=== PATIENT | female | born 1930 | race Caucasian/White ===

== ENCOUNTER 2016-04-06 06:10 | Observation (INO) | payer OTHER ==
[~2016-04-06] VITALS: Ht 167.6 cm; Wt 79.6 kg
[~2016-04-06 06:10] MED LIST: ANTIVERT25 MG PO; ASPIR-LOW81 MG PO; ATARAX,VISTARIL25 MG PO; ATIVAN0.5 MG PO; AVAPRO300 MG PO; Ascorbic Acid,Ester- PO; BACTRIM,SEPT1 TABLET PO; BENICAR HCT 401 EAC1 PO; BENICAR20 MG PO; BENICAR40 MG PO; BISACODYL5 MG PO; CALCIUM 500 +1 EAC2 PO; CALCIUM 600 WI1 EAC1 PO; CALCIUM500 M4 PO; CARBIDOPA-LEVO1 EAC7 PO; CARBIDOPA/LEVO1 EACH PO; CEFTIN250 MG PO; CENTRUM SILV1 TABLE1 PO; CHLORTHALIDONE25 MG PO; CO Q-10100 MG PO; COUMADIN,JANTOVE1 MG PO; COUMADIN,JANTOVE2 MG PO; COUMADIN2 MG PO; COUMADIN3 MG PO; Calcium Carbonate,Ca PO; Catapres PO; Centrum Silver,Certa PO; Coumadin dosing per PO; DOCUSATE SODIU100 MG PO; DUONEB3 ML IH; Dulcolax PO; Ecotrin PO; HEPARIN SO5000 UNITS SC; LABETALOL HCL100 MG PO; LEVOTHYROXINE125 MCG PO; LORAZEPAM0.5 MG PO; LOSARTAN POTAS100 MG PO; METOPROLOL SUCC25 MG PO; MILK OF MAGNESI10 ML PO; NIFEDIPINE ER60 MG PO; NORCO 5/3251 TABLET PO; NORVASC5 MG PO; Norvasc PO; OYST-CAL D, OS500 M1 PO; Oyst-Cal D, Oscal W/ PO; PROPAFENONE HC225 MG PO; Protonix PO; RYTHMOL SR225 MG PO; SENNA PLUS TAB1 EACH PO; SENOKOT S,PE1 TABLET PO; SINEMET 25-1001 EACH PO; SYSTANE 0.3-0.1 EACH BOTH EYES; THERAGRAN1 TABLET PO; TYLENOL REGULA325 MG PO; TYLENOL WITH C1 EACH PO; Tylenol Extra Streng PO; Tylenol PR; Tylenol Regular Stre PO; ULTRAM50 MG PO; VITAMIN B-12500 MC2 PO; VITAMIN D31000 UNI2 PO; ZETIA10 MG PO; Zofran IV
[2016-04-06 06:47] LABS: EOSINOPHIL (%) 4.4 % (0-5); EOSINOPHIL COUNT 0.2 K/uL (0-0.3); IMMATURE GRANULOCYTE (%) 0.2 % (0.0-0.7); IMMATURE GRANULOCYTE COUNT 0.1 K/uL; LYMPHOCYTE COUNT 1.1 K/uL (1.0-2.8); MCH 31.4 PG (29.0-34.0); MCHC 32.4 G/DL (30.0-36.0); MCV 96.8 FL (83-99); MEAN PLAT.VOLUME 10.2 uM^3 (9.5-12.4); MONOCYTE (%) 14.3 % (3-12); MONOCYTE COUNT 0.6 K/uL (0-0.8); NEUTROPHIL (%) 54.3 % (45-76); NEUTROPHIL COUNT 2.2 K/uL (1.8-6.4); PLATELET COUNT 188 K/uL (156-360); RBC DIS.WIDTH-CV 12.9 % (11.8-14.6); RBC DIS.WIDTH-SD 43.6 % (39-53); RED BLOOD COUNT 3.41 M/uL (3.80-5.20); WHITE BLOOD COUNT 4.1 K/uL (4.1-10.2)
[2016-04-06 06:56] LABS: INTER. NORMALIZED RATIO 1.1; PTT 28.3 (25-32)
[2016-04-06 06:59] LABS: CHLORIDE 106 mEq/L (99-109); POTASSIUM 4.2 mEq/L (3.7-5.4); SODIUM 139 mEq/L (136-147)
[2016-04-06 07:01] LABS: GLUCOSE 84 mg/dL (70-99)
[2016-04-06 07:03] LABS: ANION GAP 8 MEQ/L (2-14)
[2016-04-06 07:05] LABS: GFR ESTIMATE (CALCULATED) 35 mL/min/
[2016-04-06 07:06] LABS: UREA NITROGEN (BUN) 34 mg/dL (9-23)
[2016-04-06 07:08] LABS: TROP-I INTERPRETATION NEGATIVE; TROPONIN-I 0.01 ng/mL (0.0-0.30)
[2016-04-06] MEDS ORDERED: NEURONTIN100 MG PO (08:20)
[2016-04-06] MEDS ORDERED: SYSTANE ULTRA 015 ML BOTH EYES (08:20)
[2016-04-06] MEDS ORDERED: VITAMIN D31000 UNI1 PO (08:22)
[2016-04-06] MEDS ORDERED: VITAMIN B-12500 MC5 SL (08:23)
[2016-04-06 09:04] VITALS: BP 178/72
[2016-04-06 11:39] VITALS: BP 162/70
[2016-04-06 16:52] VITALS: BP 148/70
[2016-04-06 19:14] LABS: TROP-I INTERPRETATION NEGATIVE; TROPONIN-I 0.01 ng/mL (0.0-0.30)
[2016-04-06 21:55] VITALS: BP 167/72
[2016-04-06 23:48] VITALS: BP 196/79
[2016-04-07 00:46] VITALS: BP 172/82
[2016-04-07 01:45] LABS: TROP-I INTERPRETATION NEGATIVE; TROPONIN-I 0.01 ng/mL (0.0-0.30)
[2016-04-07 04:22] VITALS: BP 180/66
[2016-04-07 08:32] VITALS: BP 170/60
[2016-04-07 09:14] LABS: HEMATOCRIT 33.8 % (36.0-46.0); MCHC 33.1 G/DL (30.0-36.0); MCV 96.6 FL (83-99); MEAN PLAT.VOLUME 10.2 uM^3 (9.5-12.4); PLATELET COUNT 194 K/uL (156-360); RBC DIS.WIDTH-CV 13.2 % (11.8-14.6); RBC DIS.WIDTH-SD 46.5 % (39-53); WHITE BLOOD COUNT 4.2 K/uL (4.1-10.2)
[2016-04-07 09:31] LABS: ANION GAP 7 MEQ/L (2-14); CHLORIDE 105 MEQ/L (99-109); POTASSIUM 4.3 MEQ/L (3.7-5.4); SAMPLE HEMOLYSIS CHECK 0; SAMPLE ICTERIC CHECK 0; SAMPLE LIPEMIA CHECK 0; SODIUM 140 MEQ/L (136-147)
[2016-04-07 09:37] LABS: GFR ESTIMATE (CALCULATED) 38 mL/min/; GLUCOSE 89 mg/dL (70-99); UREA NITROGEN (BUN) 32 mg/dL (9-23)
[2016-04-07 11:24] VITALS: BP 140/50
[2016-04-07] MEDS ORDERED: AMLODIPINE BES2.5 MG PO (11:46)
== END 2016-04-07 14:36 | disposition home or self-care (01) ==
LOC: EME → EDBD 06:10 → EME 06:10 → 5WEST 07:42 → EDOF 07:42 → 5WEST 08:45
PROVIDERS: Emergency Medicine; Hospitalist; Nurse Practitioner Adult Health
DX: R07.9 Chest pain, unspecified (principal); I48.0 Paroxysmal atrial fibrillation; I10 Essential (primary) hypertension; Z93.3 Colostomy status; E78.5 Hyperlipidemia, unspecified; G20 Parkinson's disease; M54.16 Radiculopathy, lumbar region; M19.90 Unspecified osteoarthritis, unspecified site; Z66 Do not resuscitate
CPT/HCPCS: 71010; 80048; 84484; 85025; 85027; 85610; 85730; 93005; 99281; 99284; G0378; J0360; S0028

== ENCOUNTER 2016-09-02 20:30 | Inpatient (IN) | payer OTHER ==
[~2016-09-02] VITALS: Ht 167.6 cm; Wt 79.5 kg
[~2016-09-02 20:30] MED LIST changes: +AMLODIPINE BES2.5 MG PO; +NEURONTIN100 MG PO; +SYSTANE ULTRA 015 ML BOTH EYES; +VITAMIN B-12500 MC5 SL; +VITAMIN D31000 UNI1 PO
[2016-09-02 21:03] LABS: HEMATOCRIT 33.5 % (36.0-46.0); MCH 32.1 PG (29.0-34.0); MCHC 33.1 G/DL (30.0-36.0); MCV 96.8 FL (83-99); MEAN PLAT.VOLUME 9.5 uM^3 (9.5-12.4); PLATELET COUNT 196 K/uL (156-360); RBC DIS.WIDTH-CV 12.5 % (11.8-14.6); RBC DIS.WIDTH-SD 44.7 % (39-53); RED BLOOD COUNT 3.46 M/uL (3.80-5.20); WHITE BLOOD COUNT 5.4 K/uL (4.1-10.2)
[2016-09-02 21:17] LABS: CHLORIDE 97 mEq/L (99-109)
[2016-09-02 21:20] LABS: ANION GAP 8 MEQ/L (2-14)
[2016-09-02 21:22] LABS: GFR ESTIMATE (CALCULATED) 28 mL/min/
[2016-09-02 21:23] LABS: UREA NITROGEN (BUN) 47 mg/dL (9-23)
[2016-09-02 21:28] LABS: TROP-I INTERPRETATION NEGATIVE; TROPONIN-I 0.02 ng/mL (0.0-0.30)
[2016-09-02 21:31] LABS: SODIUM 130 mEq/L (136-147)
[2016-09-02 21:33] LABS: GLUCOSE 99 mg/dL (70-99)
[2016-09-02 21:35] LABS: TOTAL BILIRUBIN 0.4 mg/dL (0.0-1.0)
[2016-09-02 21:36] LABS: ALKALINE PHOSPHATASE 102 IU/L (3-129)
[2016-09-02 21:38] LABS: DIRECT BILIRUBIN 0.2 mg/dL (0.0-0.3)
[2016-09-02 21:40] LABS: LIPASE 25 U/L (1.0-51.0)
[2016-09-03] VITALS (7 sets, daily range): BP systolic 132–185; BP diastolic 58–74
[2016-09-03 04:10] LABS: TROP-I INTERPRETATION POSITIVE
[2016-09-03 04:12] LABS: TROPONIN-I 1.13 ng/mL (0.0-0.30)
[2016-09-03 05:33] LABS: HEMATOCRIT 32.8 % (36.0-46.0); MCH 32.7 PG (29.0-34.0); MCHC 33.5 G/DL (30.0-36.0); MCV 97.6 FL (83-99); PLATELET COUNT 188 K/uL (156-360); RBC DIS.WIDTH-CV 12.4 % (11.8-14.6); RBC DIS.WIDTH-SD 44.4 % (39-53); RED BLOOD COUNT 3.36 M/uL (3.80-5.20); WHITE BLOOD COUNT 5.4 K/uL (4.1-10.2)
[2016-09-03 05:57] LABS: ALKALINE PHOSPHATASE 89 IU/L (3-129); ANION GAP 7 MEQ/L (2-14); CHLORIDE 101 MEQ/L (99-109); GFR ESTIMATE (CALCULATED) 38 mL/min/; GLUCOSE 92 mg/dL (70-99); POTASSIUM 4.5 MEQ/L (3.7-5.4); SAMPLE HEMOLYSIS CHECK 0; SAMPLE ICTERIC CHECK 0; SAMPLE LIPEMIA CHECK 0; SODIUM 133 MEQ/L (136-147); TOTAL BILIRUBIN 0.5 MG/DL (0.0-1.0); UREA NITROGEN (BUN) 39 mg/dL (9-23)
[2016-09-03 06:35] LABS: INTER. NORMALIZED RATIO 1.1; PROTHROMBIN TIME 11.7 SEC (10.2-12.9)
[2016-09-03 09:56] LABS: TROP-I INTERPRETATION POSITIVE; TROPONIN-I 1.12 ng/mL (0.0-0.30)
[2016-09-03 13:13] LABS: INTER. NORMALIZED RATIO 1.2; PROTHROMBIN TIME 12.7 SEC (10.2-12.9)
[2016-09-03 14:16] LABS: PTT ND SEC (25-37)
[2016-09-03 14:48] LABS: INTER. NORMALIZED RATIO 1.2; PROTHROMBIN TIME 12.9 SEC (10.2-12.9)
[2016-09-03 15:34] LABS: PTT ND SEC (25-37)
[2016-09-03 16:18] LABS: TROP-I INTERPRETATION POSITIVE; TROPONIN-I 1.01 ng/mL (0.0-0.30)
[2016-09-03 18:51] LABS: INTER. NORMALIZED RATIO 1.1; PROTHROMBIN TIME 12.4 SEC (10.2-12.9)
[2016-09-03 19:44] LABS: PTT ND SEC (25-37)
[2016-09-04] VITALS (7 sets, daily range): BP systolic 100–170; BP diastolic 50–78
[2016-09-04 08:26] LABS: HEMATOCRIT 32.3 % (36.0-46.0); MCH 31.7 PG (29.0-34.0); MCHC 32.8 G/DL (30.0-36.0); MCV 96.7 FL (83-99); MEAN PLAT.VOLUME 10.3 uM^3 (9.5-12.4); PLATELET COUNT 164 K/uL (156-360); RBC DIS.WIDTH-CV 12.4 % (11.8-14.6); RBC DIS.WIDTH-SD 44.4 % (39-53); RED BLOOD COUNT 3.34 M/uL (3.80-5.20); WHITE BLOOD COUNT 3.4 K/uL (4.1-10.2)
[2016-09-04 09:00] LABS: ANION GAP 5 MEQ/L (2-14); CHLORIDE 104 MEQ/L (99-109); GFR ESTIMATE (CALCULATED) 38 mL/min/; GLUCOSE 79 mg/dL (70-99); POTASSIUM 4.6 MEQ/L (3.7-5.4); SAMPLE HEMOLYSIS CHECK 0; SAMPLE ICTERIC CHECK 0; SAMPLE LIPEMIA CHECK 0; SODIUM 136 MEQ/L (136-147); UREA NITROGEN (BUN) 35 mg/dL (9-23)
[2016-09-04 09:04] LABS: TROP-I INTERPRETATION POSITIVE; TROPONIN-I 0.95 ng/mL (0.0-0.30)
[2016-09-05 04:05] VITALS: BP 122/70
[2016-09-05 06:13] LABS: HEMATOCRIT 32.4 % (36.0-46.0); MCH 31.8 PG (29.0-34.0); MCHC 32.4 G/DL (30.0-36.0); MCV 98.2 FL (83-99); MEAN PLAT.VOLUME 10.6 uM^3 (9.5-12.4); PLATELET COUNT 179 K/uL (156-360); RBC DIS.WIDTH-CV 12.7 % (11.8-14.6); RBC DIS.WIDTH-SD 46.2 % (39-53); WHITE BLOOD COUNT 4.5 K/uL (4.1-10.2)
[2016-09-05 08:34] VITALS: BP 128/64
[2016-09-05 11:21] VITALS: BP 126/68
== END 2016-09-05 16:06 | disposition home health service (06) | DRG 281 ==
LOC: EME → EDBD 20:30 → EDOF 09-03 00:33 → ENRESERV 09-03 00:39 → 5WEST 09-03 01:51 → 4EAST 09-03 07:57 → 5WEST 09-03 07:57 → ENRESERV 09-03 08:01 → CANRESERV 09-03 08:01 → ENRESERV 09-03 08:24 → 4EAST 09-03 10:25
PROVIDERS: Internal Medicine; Internal Medicine Cardiovascular Disease; Nurse Practitioner Adult Health; Student in an Organized Health Care Education/Training Program
DX: I21.4 Non-ST elevation (NSTEMI) myocardial infarction (principal); N18.3 Chronic kidney disease, stage 3 (moderate); I12.9 Hypertensive chronic kidney disease with stage 1 through stage 4 chronic kidney disease, or unspecified chronic kidney disease; I48.0 Paroxysmal atrial fibrillation; N17.9 Acute kidney failure, unspecified; E87.1 Hypo-osmolality and hyponatremia; G20 Parkinson's disease; E78.5 Hyperlipidemia, unspecified; M54.10 Radiculopathy, site unspecified; I25.10 Atherosclerotic heart disease of native coronary artery without angina pectoris; I45.10 Unspecified right bundle-branch block; Z91.81 History of falling; Z79.899 Other long term (current) drug therapy; Z90.5 Acquired absence of kidney; Z85.528 Personal history of other malignant neoplasm of kidney; Z98.42 Cataract extraction status, left eye; Z93.3 Colostomy status; Z98.41 Cataract extraction status, right eye; Z72.0 Tobacco use; Z68.28 Body mass index [BMI] 28.0-28.9, adult
CPT/HCPCS: 71020; 80048; 80053; 80076; 83690; 83930; 83935; 84300; 84484; 85027; 85610; 85730; 93005; 99281; 99285; J1644; J1650; J2405; J7030; J7040

== ENCOUNTER 2016-10-19 15:54 | Observation (INO) | payer OTHER ==
[~2016-10-19] VITALS: Ht 167.6 cm; Wt 84.4 kg
[~2016-10-19 15:54] MED LIST changes: -LEVOTHYROXINE125 MCG PO; +LEVOTHYROXINE75 MCG PO; -NEURONTIN100 MG PO; +NEURONTIN300 MG PO
[2016-10-19 17:39] LABS: EOSINOPHIL (%) 4.6 % (0-5); EOSINOPHIL COUNT 0.2 K/uL (0-0.3); HEMATOCRIT 33.8 % (36.0-46.0); IMMATURE GRANULOCYTE (%) 0.2 % (0.0-0.7); INSTRUMENT ABS NEUTROPHIL CT 2.5 K/uL; LYMPHOCYTE COUNT 0.9 K/uL (1.0-2.8); MCV 100.3 FL (83-99); MEAN PLAT.VOLUME 10.2 uM^3 (9.5-12.4); MONOCYTE (%) 13.8 % (3-12); MONOCYTE COUNT 0.6 K/uL (0-0.8); NEUTROPHIL (%) 59.9 % (45-76); NEUTROPHIL COUNT 2.5 K/uL (1.8-6.4); PLATELET COUNT 179 K/uL (156-360); RBC DIS.WIDTH-CV 13.2 % (11.8-14.6); RED BLOOD COUNT 3.37 M/uL (3.80-5.20); WHITE BLOOD COUNT 4.1 K/uL (4.1-10.2)
[2016-10-19 17:49] LABS: ANION GAP 5 MEQ/L (2-14); CHLORIDE 106 MEQ/L (99-109); SAMPLE HEMOLYSIS CHECK 0; SAMPLE ICTERIC CHECK 0; SAMPLE LIPEMIA CHECK 0; SODIUM 140 MEQ/L (136-147)
[2016-10-19 17:54] LABS: GFR ESTIMATE (CALCULATED) 38 mL/min/; GLUCOSE 86 mg/dL (70-99); UREA NITROGEN (BUN) 42 mg/dL (9-23)
[2016-10-19 17:59] LABS: TROP-I INTERPRETATION NEGATIVE; TROPONIN-I 0.01 ng/mL (0.0-0.30)
[2016-10-19 18:12] LABS: PROTHROMBIN TIME 11.2 SEC (10.2-12.9)
[2016-10-19 18:15] LABS: PTT 29.4 SEC (25-37)
[2016-10-19] MEDS ORDERED: AMLODIPINE BES2.5 MG PO (21:25)
[2016-10-19] MEDS ORDERED: SYSTANE 0.3-0.1 EACH BOTH EYES (21:26)
[2016-10-19 23:19] VITALS: BP 179/75
[2016-10-20 01:44] LABS: TROP-I INTERPRETATION NEGATIVE; TROPONIN-I 0.02 ng/mL (0.0-0.30)
[2016-10-20 03:00] LABS: HDL CHOLESTEROL 62 MG/DL (Desirable>=50); LDL CHOLESTEROL 101 mg/dL (Desirable<100); NON-HDL CHOLESTEROL 105 mg/dL (Desirable<160); TOTAL CHOLESTEROL 167 mg/dL (Desirable<200); TRIGLYCERIDES 20 MG/DL (Normal: <150)
[2016-10-20 04:00] VITALS: BP 166/84
[2016-10-20 07:50] VITALS: BP 155/70
[2016-10-20 09:54] LABS: TROP-I INTERPRETATION NEGATIVE; TROPONIN-I < 0.01 ng/mL (0.0-0.30)
[2016-10-20 11:45] VITALS: BP 103/51
== END 2016-10-20 15:00 | disposition home or self-care (01) ==
LOC: EME 15:54 → EDOF 21:36 → 5WEST 21:36 → EDOF 21:36 → ENRESERV 21:37 → 5WEST 22:45 → ENPENDDIS 10-20 → 5WEST 10-20 15:00
PROVIDERS: Emergency Medicine; Physician Assistant Medical
DX: R07.9 Chest pain, unspecified (principal); R51 Headache; I16.0 Hypertensive urgency; I12.9 Hypertensive chronic kidney disease with stage 1 through stage 4 chronic kidney disease, or unspecified chronic kidney disease; N18.9 Chronic kidney disease, unspecified; I48.0 Paroxysmal atrial fibrillation; R00.1 Bradycardia, unspecified; I25.2 Old myocardial infarction; I25.10 Atherosclerotic heart disease of native coronary artery without angina pectoris; E78.5 Hyperlipidemia, unspecified; K21.9 Gastro-esophageal reflux disease without esophagitis; D64.9 Anemia, unspecified; Z85.528 Personal history of other malignant neoplasm of kidney; Z79.82 Long term (current) use of aspirin; Z87.19 Personal history of other diseases of the digestive system; F41.9 Anxiety disorder, unspecified; F32.9 Major depressive disorder, single episode, unspecified; G89.29 Other chronic pain; M54.5 Low back pain; M19.90 Unspecified osteoarthritis, unspecified site; Z95.1 Presence of aortocoronary bypass graft; Z90.49 Acquired absence of other specified parts of digestive tract; Z93.3 Colostomy status; Z90.5 Acquired absence of kidney; R53.1 Weakness; G25.81 Restless legs syndrome; Z88.0 Allergy status to penicillin; Z88.5 Allergy status to narcotic agent; Z88.8 Allergy status to other drugs, medicaments and biological substances
CPT/HCPCS: 71010; 78582; 80048; 80061; 84484; 85025; 85379; 85610; 85730; 93005; 99281; 99285; A9540; A9567; G0378; J1644

== ENCOUNTER 2017-02-08 10:31 | Emergency (ER) | payer OTHER ==
[~2017-02-08] VITALS: Ht 167.6 cm; Wt 79.5 kg
[2017-02-08] MEDS ORDERED: CALCIUM 500 MG1 EACH PO (10:45)
[2017-02-08 12:06] LABS: HEMATOCRIT 34.8 % (36.0-46.0); HEMOGLOBIN 11.5 G/DL (11.9-15.5); MCH 32.5 PG (29.0-34.0); MCV 98.3 FL (83-99); PLATELET COUNT 212 K/uL (156-360); RBC DIS.WIDTH-CV 13.4 % (11.8-14.6); RBC DIS.WIDTH-SD 48.8 % (39-53); RED BLOOD COUNT 3.54 M/uL (3.80-5.20); WHITE BLOOD COUNT 5.7 K/uL (4.1-10.2)
[2017-02-08 12:16] LABS: CHLORIDE 107 mEq/L (99-109); POTASSIUM 4.6 mEq/L (3.7-5.4); SODIUM 141 mEq/L (136-147)
[2017-02-08 12:17] LABS: GLUCOSE 108 mg/dL (70-99)
[2017-02-08 12:20] LABS: PTT 29.2 SEC (25-37)
[2017-02-08 12:21] LABS: CREATININE 1.3 mg/dL (0.6-1.3); GFR ESTIMATE (CALCULATED) 41 mL/min/
[2017-02-08 12:22] LABS: UREA NITROGEN (BUN) 33 mg/dL (9-23)
[2017-02-08] MEDS ORDERED: TRAMADOL HCL50 MG PO (12:50)
[2017-02-08 14:06] VITALS: BP 180/68
== END 2017-02-08 14:06 | disposition home or self-care (01) ==
LOC: EME 10:31
PROVIDERS: Physician Assistant
DX: M25.561 Pain in right knee (principal); M54.41 Lumbago with sciatica, right side; G89.29 Other chronic pain; M17.0 Bilateral primary osteoarthritis of knee; I10 Essential (primary) hypertension; E78.5 Hyperlipidemia, unspecified; F41.9 Anxiety disorder, unspecified; Z85.528 Personal history of other malignant neoplasm of kidney; Z90.710 Acquired absence of both cervix and uterus; Z88.0 Allergy status to penicillin; Z88.5 Allergy status to narcotic agent; Z88.8 Allergy status to other drugs, medicaments and biological substances
CPT/HCPCS: 73502; 73564; 80048; 85027; 85610; 85730; 93971; 99281; 99284; J3010

== ENCOUNTER 2017-02-17 12:23 | Inpatient (IN) | payer OTHER ==
[~2017-02-17] VITALS: Ht 167.6 cm; Wt 84.1 kg
[~2017-02-17 12:23] MED LIST changes: +CALCIUM 500 MG1 EACH PO; -NEURONTIN300 MG PO; +NEURONTIN600 MG PO; +TRAMADOL HCL50 MG PO
[2017-02-17 13:32] LABS: HEMATOCRIT 32.4 % (36.0-46.0); HEMOGLOBIN 10.3 G/DL (11.9-15.5); MCH 31.7 PG (29.0-34.0); MCHC 31.8 G/DL (30.0-36.0); MCV 99.7 FL (83-99); PLATELET COUNT 207 K/uL (156-360); RBC DIS.WIDTH-CV 13.7 % (11.8-14.6); RBC DIS.WIDTH-SD 50.5 % (39-53); RED BLOOD COUNT 3.25 M/uL (3.80-5.20); WHITE BLOOD COUNT 5.5 K/uL (4.1-10.2)
[2017-02-17 13:37] LABS: INTER. NORMALIZED RATIO 1.1
[2017-02-17 13:40] LABS: PTT 27.1 SEC (25-37)
[2017-02-17 13:42] LABS: ALBUMIN 3.8 g/dL (3.2-4.8)
[2017-02-17 13:43] LABS: CHLORIDE 106 mEq/L (99-109); POTASSIUM 4.2 mEq/L (3.7-5.4); SODIUM 138 mEq/L (136-147)
[2017-02-17 13:45] LABS: GLUCOSE 99 mg/dL (70-99)
[2017-02-17 13:47] LABS: TOTAL BILIRUBIN 0.4 mg/dL (0.0-1.0)
[2017-02-17 13:48] LABS: ALKALINE PHOSPHATASE 91 IU/L (3-129)
[2017-02-17 13:49] LABS: CREATININE 1.5 mg/dL (0.6-1.3); GFR ESTIMATE (CALCULATED) 35 mL/min/
[2017-02-17 13:50] LABS: AST (GOT) 18 IU/L (2-34); UREA NITROGEN (BUN) 37 mg/dL (9-23)
[2017-02-17 13:52] LABS: ALT (GPT) 9 IU/L (3-49); LIPASE 15 U/L (1.0-51.0)
[2017-02-17 13:53] LABS: TROP-I INTERPRETATION INDETERMINATE; TROPONIN-I 0.54 ng/mL (0.0-0.30)
[2017-02-17] MEDS ORDERED: CLONAZEPAM0.5 MG PO (18:02)
[2017-02-17] MEDS ORDERED: IMDUR30 MG PO (18:02)
[2017-02-17 18:22] LABS: TROP-I INTERPRETATION INDETERMINATE; TROPONIN-I 0.58 ng/mL (0.0-0.30)
[2017-02-18] VITALS (7 sets, daily range): BP systolic 139–190; BP diastolic 74–90
[2017-02-18 00:41] LABS: TROP-I INTERPRETATION POSITIVE
[2017-02-18 00:43] LABS: TROPONIN-I 0.64 ng/mL (0.0-0.30)
[2017-02-18 04:57] LABS: TROP-I INTERPRETATION POSITIVE
[2017-02-18 05:19] LABS: TROPONIN-I 0.79 ng/mL (0.0-0.30)
[2017-02-18 06:28] LABS: HDL CHOLESTEROL 65 MG/DL (Desirable>=50); LDL CHOLESTEROL 76 mg/dL (Desirable<100); NON-HDL CHOLESTEROL 82 mg/dL (Desirable<160); TOTAL CHOLESTEROL 147 mg/dL (Desirable<200); TRIGLYCERIDES 29 MG/DL (Normal: <150)
[2017-02-18 12:16] LABS: TROP-I INTERPRETATION POSITIVE; TROPONIN-I 0.91 ng/mL (0.0-0.30)
[2017-02-18 18:07] LABS: TROP-I INTERPRETATION POSITIVE; TROPONIN-I 0.84 ng/mL (0.0-0.30)
[2017-02-19 04:32] VITALS: BP 180/90
[2017-02-19 06:21] LABS: TROP-I INTERPRETATION POSITIVE; TROPONIN-I 0.62 ng/mL (0.0-0.30)
[2017-02-19 06:26] LABS: CHLORIDE 106 MEQ/L (99-109); CREATININE 1.4 MG/DL (0.6-1.3); GFR ESTIMATE (CALCULATED) 38 mL/min/; GLUCOSE 106 mg/dL (70-99); POTASSIUM 4.8 MEQ/L (3.7-5.4); SODIUM 139 MEQ/L (136-147); UREA NITROGEN (BUN) 32 mg/dL (9-23)
[2017-02-19 07:52] VITALS: BP 180/77
[2017-02-19 11:31] VITALS: BP 142/66
[2017-02-19 15:21] VITALS: BP 175/77
[2017-02-19 19:03] VITALS: BP 161/77
[2017-02-19 23:29] VITALS: BP 138/66
[2017-02-20 04:26] VITALS: BP 159/70
[2017-02-20 06:45] LABS: CHLORIDE 106 MEQ/L (99-109); CREATININE 1.8 MG/DL (0.6-1.3); GFR ESTIMATE (CALCULATED) 28 mL/min/; GLUCOSE 91 mg/dL (70-99); SODIUM 140 MEQ/L (136-147); UREA NITROGEN (BUN) 37 mg/dL (9-23)
[2017-02-20 07:51] VITALS: BP 190/78
[2017-02-20 08:05] LABS: HEMATOCRIT 31.8 % (36.0-46.0); MCH 31.8 PG (29.0-34.0); MCHC 31.4 G/DL (30.0-36.0); MCV 101.3 FL (83-99); PLATELET COUNT 186 K/uL (156-360); RBC DIS.WIDTH-CV 13.9 % (11.8-14.6); RBC DIS.WIDTH-SD 51.8 % (39-53); RED BLOOD COUNT 3.14 M/uL (3.80-5.20); WHITE BLOOD COUNT 5.3 K/uL (4.1-10.2)
[2017-02-20 08:51] LABS: TROP-I INTERPRETATION POSITIVE; TROPONIN-I 1.79 ng/mL (0.0-0.30)
[2017-02-20 12:03] VITALS: BP 145/67
[2017-02-20 16:52] VITALS: BP 147/64
[2017-02-20 19:27] VITALS: BP 153/67
[2017-02-20 22:10] VITALS: BP 146/67
[2017-02-21 03:15] VITALS: BP 153/68
[2017-02-21 08:01] LABS: HEMATOCRIT 30.6 % (36.0-46.0); HEMOGLOBIN 9.7 G/DL (11.9-15.5); MCH 32.3 PG (29.0-34.0); MCHC 31.7 G/DL (30.0-36.0); PLATELET COUNT 183 K/uL (156-360); RBC DIS.WIDTH-CV 13.9 % (11.8-14.6); RBC DIS.WIDTH-SD 52.2 % (39-53); WHITE BLOOD COUNT 5.5 K/uL (4.1-10.2)
[2017-02-21 08:04] LABS: CHLORIDE 107 MEQ/L (99-109); CREATININE 1.7 MG/DL (0.6-1.3); GFR ESTIMATE (CALCULATED) 30 mL/min/; GLUCOSE 88 mg/dL (70-99); POTASSIUM 4.6 MEQ/L (3.7-5.4); SODIUM 140 MEQ/L (136-147); UREA NITROGEN (BUN) 35 mg/dL (9-23)
[2017-02-21 08:13] LABS: TROP-I INTERPRETATION POSITIVE
[2017-02-21 08:15] LABS: TROPONIN-I 2.37 ng/mL (0.0-0.30)
[2017-02-21 09:34] VITALS: BP 130/60
[2017-02-21 12:00] VITALS: BP 106/52
[2017-02-21 16:00] VITALS: BP 154/65
[2017-02-21 19:17] VITALS: BP 139/68
[2017-02-22 00:32] VITALS: BP 151/63
[2017-02-22 03:15] VITALS: BP 153/68
[2017-02-22 06:06] LABS: BASOPHIL (%) 0.9 % (0-1); EOSINOPHIL (%) 6.4 % (0-5); EOSINOPHIL COUNT 0.3 K/uL (0-0.3); HEMATOCRIT 28.9 % (36.0-46.0); IMMATURE GRANULOCYTE (%) 0.4 % (0.0-0.7); LYMPHOCYTE (%) 22.2 % (15-42); MCH 31.3 PG (29.0-34.0); MCHC 31.1 G/DL (30.0-36.0); MCV 100.3 FL (83-99); MONOCYTE COUNT 0.8 K/uL (0-0.8); NEUTROPHIL (%) 54.1 % (45-76); NEUTROPHIL COUNT 2.5 K/uL (1.8-6.4); PLATELET COUNT 186 K/uL (156-360); RBC DIS.WIDTH-CV 13.8 % (11.8-14.6); RBC DIS.WIDTH-SD 50.9 % (39-53); RED BLOOD COUNT 2.88 M/uL (3.80-5.20); WHITE BLOOD COUNT 4.7 K/uL (4.1-10.2)
[2017-02-22 06:26] LABS: TROP-I INTERPRETATION POSITIVE; TROPONIN-I 2.34 ng/mL (0.0-0.30)
[2017-02-22 06:50] LABS: CHLORIDE 109 MEQ/L (99-109); CREATININE 1.4 MG/DL (0.6-1.3); GFR ESTIMATE (CALCULATED) 38 mL/min/; GLUCOSE 87 mg/dL (70-99); POTASSIUM 4.4 MEQ/L (3.7-5.4); SODIUM 142 MEQ/L (136-147); UREA NITROGEN (BUN) 32 mg/dL (9-23)
[2017-02-22 07:08] VITALS: BP 151/66
[2017-02-22] MEDS ORDERED: NITROSTAT0.4 MG SL (11:18)
[2017-02-22] MEDS ORDERED: IMDUR60 MG PO (11:18)
[2017-02-22] MEDS ORDERED: PRAVASTATIN SOD40 MG PO (11:18)
[2017-02-22] MEDS ORDERED: CLOPIDOGREL75 MG PO (11:18)
[2017-02-22] MEDS ORDERED: LOSARTAN POTAS100 MG PO (11:19)
[2017-02-22 12:06] VITALS: BP 122/60
== END 2017-02-22 14:18 | disposition home or self-care (01) | DRG 281 ==
LOC: EME 12:23 → EDOF 19:48 → 4EAST 19:48 → ENRESERV 19:52 → 4EAST 02-18 02:49
PROVIDERS: Emergency Medicine; Hospitalist; Internal Medicine; Internal Medicine Cardiovascular Disease; Physician Assistant
DX: I21.4 Non-ST elevation (NSTEMI) myocardial infarction (principal); N17.9 Acute kidney failure, unspecified; I48.0 Paroxysmal atrial fibrillation; N18.3 Chronic kidney disease, stage 3 (moderate); G20 Parkinson's disease; I12.9 Hypertensive chronic kidney disease with stage 1 through stage 4 chronic kidney disease, or unspecified chronic kidney disease; E78.5 Hyperlipidemia, unspecified; K21.9 Gastro-esophageal reflux disease without esophagitis; R00.1 Bradycardia, unspecified; Z53.9 Procedure and treatment not carried out, unspecified reason; D64.9 Anemia, unspecified; F41.8 Other specified anxiety disorders; Z66 Do not resuscitate; R29.6 Repeated falls; I25.119 Atherosclerotic heart disease of native coronary artery with unspecified angina pectoris; Z68.29 Body mass index [BMI] 29.0-29.9, adult; Z79.82 Long term (current) use of aspirin; Z79.02 Long term (current) use of antithrombotics/antiplatelets; Z93.3 Colostomy status; Z95.1 Presence of aortocoronary bypass graft; Z90.5 Acquired absence of kidney; Z86.73 Personal history of transient ischemic attack (TIA), and cerebral infarction without residual deficits; Z85.528 Personal history of other malignant neoplasm of kidney; Z79.899 Other long term (current) drug therapy; I25.2 Old myocardial infarction
CPT/HCPCS: 71045; 80048; 80053; 80061; 83690; 84484; 85025; 85027; 85610; 85730; 86850; 86900; 86901; 93005; 99281; 99285

== ENCOUNTER 2017-02-26 15:20 | Observation (INO) | payer OTHER ==
[~2017-02-26] VITALS: Ht 167.6 cm; Wt 83.8 kg
[~2017-02-26 15:20] MED LIST changes: +CLONAZEPAM0.5 MG PO; +CLOPIDOGREL75 MG PO; +IMDUR30 MG PO; +IMDUR60 MG PO; +NITROSTAT0.4 MG SL; +PRAVASTATIN SOD40 MG PO
[2017-02-26] MEDS ORDERED: PLAVIX75 MG PO (19:14)
[2017-02-26 22:04] LABS: APPEARANCE CLEAR ((CLEAR)); BILIRUBIN NEGATIVE; BLOOD NEGATIVE; COLOR STRAW ((YELLOW)); GLUCOSE (STRIP) NEGATIVE; KETONES NEGATIVE; LEUKOCYTES NEGATIVE; NITRITE NEGATIVE; PROTEIN (STRIP) NEGATIVE; SPECIFIC GRAVITY 1.009 (1.000-1.030); UCUL ADDED? NO; UROBILINOGEN 0.2 MG/DL (0.2-1.0)
[2017-02-26 22:35] VITALS: BP 186/83
[2017-02-27 00:48] VITALS: BP 181/67
[2017-02-27 04:00] VITALS: BP 134/63
[2017-02-27 05:36] LABS: HEMATOCRIT 29.5 % (36.0-46.0); HEMOGLOBIN 9.4 G/DL (11.9-15.5); MCHC 31.9 G/DL (30.0-36.0); MCV 100.3 FL (83-99); PLATELET COUNT 179 K/uL (156-360); RBC DIS.WIDTH-CV 13.6 % (11.8-14.6); RED BLOOD COUNT 2.94 M/uL (3.80-5.20); WHITE BLOOD COUNT 3.9 K/uL (4.1-10.2)
[2017-02-27 06:34] LABS: CHLORIDE 106 MEQ/L (99-109); CREATININE 1.4 MG/DL (0.6-1.3); GFR ESTIMATE (CALCULATED) 38 mL/min/; GLUCOSE 68 mg/dL (70-99); POTASSIUM 4.6 MEQ/L (3.7-5.4); SODIUM 143 MEQ/L (136-147); UREA NITROGEN (BUN) 32 mg/dL (9-23)
[2017-02-27 08:13] VITALS: BP 149/67
[2017-02-27 11:23] VITALS: BP 115/55
[2017-02-27 16:05] VITALS: BP 120/60
[2017-02-27 19:52] VITALS: BP 147/63
[2017-02-28] VITALS: BP 113/56
[2017-02-28 05:00] VITALS: BP 153/72
[2017-02-28 09:17] VITALS: BP 126/71
[2017-02-28 11:54] VITALS: BP 112/53
[2017-02-28 16:22] VITALS: BP 134/60
== END 2017-02-28 16:29 ==
LOC: EME 15:20 → EDOF 19:52 → 5WEST 19:52 → EDOF 19:52 → ENRESERV 19:58 → 5WEST 21:11
PROVIDERS: Hospitalist
DX: M25.561 Pain in right knee (principal); M17.11 Unilateral primary osteoarthritis, right knee; R26.2 Difficulty in walking, not elsewhere classified; I25.10 Atherosclerotic heart disease of native coronary artery without angina pectoris; I25.2 Old myocardial infarction; Z95.1 Presence of aortocoronary bypass graft; Z60.2 Problems related to living alone; I12.9 Hypertensive chronic kidney disease with stage 1 through stage 4 chronic kidney disease, or unspecified chronic kidney disease; N18.9 Chronic kidney disease, unspecified; Z85.528 Personal history of other malignant neoplasm of kidney; Z90.5 Acquired absence of kidney; I48.0 Paroxysmal atrial fibrillation; E78.5 Hyperlipidemia, unspecified; R25.1 Tremor, unspecified; Z93.3 Colostomy status; K21.9 Gastro-esophageal reflux disease without esophagitis; D64.9 Anemia, unspecified; F32.9 Major depressive disorder, single episode, unspecified; F41.9 Anxiety disorder, unspecified; Z87.19 Personal history of other diseases of the digestive system; G89.29 Other chronic pain; M54.5 Low back pain; Z90.49 Acquired absence of other specified parts of digestive tract; Z82.0 Family history of epilepsy and other diseases of the nervous system; Z88.0 Allergy status to penicillin; Z88.5 Allergy status to narcotic agent; Z88.8 Allergy status to other drugs, medicaments and biological substances; Z66 Do not resuscitate
CPT/HCPCS: 73564; 80048; 81003; 85027; 93971; G0378; G8978 GP CJ; G8979 GP CH; G8980 CJ; J1644

== ENCOUNTER 2017-03-20 01:51 | Inpatient (IN) | payer OTHER ==
[~2017-03-20] VITALS: Ht 167.6 cm; Wt 82.1 kg
[~2017-03-20 01:51] MED LIST changes: +CALCIUM + D SO1 EACH PO; -CALCIUM 500 MG1 EACH PO; +PLAVIX75 MG PO
[2017-03-20 02:07] LABS: HEMATOCRIT 34.4 % (36.0-46.0); HEMOGLOBIN 11.1 G/DL (11.9-15.5); MCH 32.5 PG (29.0-34.0); MCHC 32.3 G/DL (30.0-36.0); MCV 100.6 FL (83-99); PLATELET COUNT 207 K/uL (156-360); RBC DIS.WIDTH-CV 13.6 % (11.8-14.6); RBC DIS.WIDTH-SD 50.3 % (39-53); RED BLOOD COUNT 3.42 M/uL (3.80-5.20); WHITE BLOOD COUNT 6.7 K/uL (4.1-10.2)
[2017-03-20 02:13] LABS: INTER. NORMALIZED RATIO 1.1
[2017-03-20 02:15] LABS: CHLORIDE 102 mEq/L (99-109); POTASSIUM 4.6 mEq/L (3.7-5.4); SODIUM 135 mEq/L (136-147)
[2017-03-20 02:17] LABS: GLUCOSE 92 mg/dL (70-99)
[2017-03-20 02:20] LABS: CREATININE 1.6 mg/dL (0.6-1.3); GFR ESTIMATE (CALCULATED) 33 mL/min/
[2017-03-20 02:21] LABS: UREA NITROGEN (BUN) 34 mg/dL (9-23)
[2017-03-20 02:24] LABS: PTT 25.5 SEC (25-37)
[2017-03-20 02:27] LABS: TROP-I INTERPRETATION NEGATIVE; TROPONIN-I 0.05 ng/mL (0.0-0.30)
[2017-03-20 07:38] LABS: HDL CHOLESTEROL 78 MG/DL (Desirable>=50); LDL CHOLESTEROL 64 mg/dL (Desirable<100); NON-HDL CHOLESTEROL 74 mg/dL (Desirable<160); TOTAL CHOLESTEROL 152 mg/dL (Desirable<200); TRIGLYCERIDES 52 MG/DL (Normal: <150)
[2017-03-20 14:57] VITALS: BP 184/62
[2017-03-20 19:30] VITALS: BP 180/76
[2017-03-21] VITALS (7 sets, daily range): BP systolic 105–176; BP diastolic 51–76
[2017-03-21 05:35] LABS: BASOPHIL (%) 0.5 % (0-1); EOSINOPHIL (%) 1.9 % (0-5); EOSINOPHIL COUNT 0.1 K/uL (0-0.3); HEMATOCRIT 33.9 % (36.0-46.0); HEMOGLOBIN 10.6 G/DL (11.9-15.5); IMMATURE GRANULOCYTE (%) 0.3 % (0.0-0.7); LYMPHOCYTE (%) 12.9 % (15-42); LYMPHOCYTE COUNT 0.8 K/uL (1.0-2.8); MCH 31.2 PG (29.0-34.0); MCHC 31.3 G/DL (30.0-36.0); MCV 99.7 FL (83-99); MONOCYTE (%) 13.4 % (3-12); MONOCYTE COUNT 0.8 K/uL (0-0.8); NEUTROPHIL COUNT 4.2 K/uL (1.8-6.4); PLATELET COUNT 201 K/uL (156-360); RBC DIS.WIDTH-CV 13.6 % (11.8-14.6); WHITE BLOOD COUNT 5.9 K/uL (4.1-10.2)
[2017-03-21 06:03] LABS: CHLORIDE 105 MEQ/L (99-109); CREATININE 1.5 MG/DL (0.6-1.3); GFR ESTIMATE (CALCULATED) 35 mL/min/; GLUCOSE 93 mg/dL (70-99); POTASSIUM 4.7 MEQ/L (3.7-5.4); SODIUM 138 MEQ/L (136-147); UREA NITROGEN (BUN) 33 mg/dL (9-23)
[2017-03-22 06:05] LABS: IRON 36 MCG/DL (35-150); TRANSFERRIN (TIBC) 232.5 mg/dL (215-380); TRANSFERRIN SATUR. 15 % (20-55)
[2017-03-22 07:50] LABS: FERRITIN 33 NG/ML (10-291)
[2017-03-22 07:55] LABS: FOLIC ACID (FOLATE) 19.2 NG/ML (5.0-22.0)
[2017-03-22 08:02] LABS: ABSOLUTE RETICULOCYTE CT. 0.1 M/uL (0.02-0.08); IMM.RETIC FRACTION 15.7 % (3-19); RETICULOCYTE COUNT 1.9 % (0.5-1.8)
[2017-03-22 08:47] VITALS: BP 144/89
[2017-03-22 15:38] VITALS: BP 115/58
[2017-03-22 23:52] LABS: APPEARANCE SL.HAZY ((CLEAR)); BILIRUBIN NEGATIVE; BLOOD NEGATIVE; COLOR YELLOW ((YELLOW)); GLUCOSE (STRIP) NEGATIVE; KETONES NEGATIVE; LEUKOCYTES LARGE; NITRITE NEGATIVE; PROTEIN (STRIP) NEGATIVE; SPECIFIC GRAVITY 1.015 (1.000-1.030); UROBILINOGEN 0.2 MG/DL (0.2-1.0)
[2017-03-23] VITALS: BP 156/71
[2017-03-23 00:11] LABS: WHITE BLOOD CELLS TNTC /HPF (0-5)
[2017-03-23 00:12] LABS: BACTERIA 3+ /HPF; EPITHELIAL CELLS 2+ /HPF; MUCUS 2+ /LPF; RED BLOOD CELLS 0-5 /HPF (0-5); UCUL ADDED? YES
[2017-03-23 06:54] LABS: BASOPHIL (%) 0.8 % (0-1); EOSINOPHIL (%) 3.4 % (0-5); EOSINOPHIL COUNT 0.2 K/uL (0-0.3); HEMATOCRIT 32.5 % (36.0-46.0); HEMOGLOBIN 10.2 G/DL (11.9-15.5); IMMATURE GRANULOCYTE (%) 0.4 % (0.0-0.7); LYMPHOCYTE (%) 13.2 % (15-42); LYMPHOCYTE COUNT 0.7 K/uL (1.0-2.8); MCH 31.7 PG (29.0-34.0); MCHC 31.4 G/DL (30.0-36.0); MCV 100.9 FL (83-99); MONOCYTE (%) 13.6 % (3-12); MONOCYTE COUNT 0.7 K/uL (0-0.8); NEUTROPHIL (%) 68.6 % (45-76); NEUTROPHIL COUNT 3.4 K/uL (1.8-6.4); PLATELET COUNT 190 K/uL (156-360); RBC DIS.WIDTH-CV 13.6 % (11.8-14.6); RBC DIS.WIDTH-SD 50.5 % (39-53); RED BLOOD COUNT 3.22 M/uL (3.80-5.20); WHITE BLOOD COUNT 4.9 K/uL (4.1-10.2)
[2017-03-23 07:19] LABS: ALBUMIN 3.2 G/DL (3.2-4.8); ALKALINE PHOSPHATASE 77 IU/L (3-129); ALT (GPT) 6 IU/L (3-49); AST (GOT) 10 IU/L (2-34); CHLORIDE 105 MEQ/L (99-109); CREATININE 1.7 MG/DL (0.6-1.3); GFR ESTIMATE (CALCULATED) 30 mL/min/; GLUCOSE 90 mg/dL (70-99); POTASSIUM 4.9 MEQ/L (3.7-5.4); SODIUM 136 MEQ/L (136-147); TOTAL BILIRUBIN 0.4 MG/DL (0.0-1.0); TOTAL PROTEIN 5.1 G/DL (6.4-8.3); UREA NITROGEN (BUN) 40 mg/dL (9-23)
[2017-03-23 07:51] VITALS: BP 156/69
[2017-03-23] MEDS ORDERED: FERROUS SULFAT325 MG PO (09:44)
[2017-03-23] MEDS ORDERED: CIPROFLOXACIN250 MG PO (09:44)
== END 2017-03-23 12:15 | DRG 92 ==
LOC: EME 01:51 → EDOF 05:16 → 5SOUTH 05:16 → ENRESERV 05:20 → 5SOUTH 14:36
PROVIDERS: Emergency Medicine; Hospitalist
DX: G25.3 Myoclonus (principal); F41.9 Anxiety disorder, unspecified; I48.0 Paroxysmal atrial fibrillation; E03.9 Hypothyroidism, unspecified; I25.10 Atherosclerotic heart disease of native coronary artery without angina pectoris; N18.3 Chronic kidney disease, stage 3 (moderate); R53.1 Weakness; E78.00 Pure hypercholesterolemia, unspecified; M48.061 Spinal stenosis, lumbar region without neurogenic claudication; G20 Parkinson's disease; M84.48XA Pathological fracture, other site, initial encounter for fracture; G62.9 Polyneuropathy, unspecified; I12.9 Hypertensive chronic kidney disease with stage 1 through stage 4 chronic kidney disease, or unspecified chronic kidney disease; D64.9 Anemia, unspecified; Z93.3 Colostomy status; Z95.1 Presence of aortocoronary bypass graft; Z85.528 Personal history of other malignant neoplasm of kidney; Z90.5 Acquired absence of kidney; Z79.82 Long term (current) use of aspirin; R29.6 Repeated falls; Z88.5 Allergy status to narcotic agent; Z88.0 Allergy status to penicillin; Z88.8 Allergy status to other drugs, medicaments and biological substances; I25.2 Old myocardial infarction
CPT/HCPCS: 70450; 70551; 80048; 80053; 80061; 81003; 82607; 82728; 82746; 83036; 83540; 84466; 84484; 85025; 85027; 85046; 85610; 85730; 87086; 93005; 93880; 99281; 99285; J1644; J2060

== ENCOUNTER 2017-05-10 18:04 | Emergency (ER) | payer OTHER ==
[~2017-05-10] VITALS: Ht 167.6 cm; Wt 80.9 kg
[~2017-05-10 18:04] MED LIST changes: +CIPROFLOXACIN250 MG PO; +FERROUS SULFAT325 MG PO
[2017-05-10 22:14] VITALS: BP 194/68
== END 2017-05-10 22:20 | disposition home or self-care (01) ==
LOC: EME 18:04
DX: Z04.3 Encounter for examination and observation following other accident (principal); W18.30XA Fall on same level, unspecified, initial encounter; I10 Essential (primary) hypertension; E78.5 Hyperlipidemia, unspecified; M19.90 Unspecified osteoarthritis, unspecified site; I25.2 Old myocardial infarction; F41.9 Anxiety disorder, unspecified; Z79.82 Long term (current) use of aspirin; Z79.02 Long term (current) use of antithrombotics/antiplatelets; Z86.69 Personal history of other diseases of the nervous system and sense organs; Z93.3 Colostomy status; Z90.710 Acquired absence of both cervix and uterus; Z90.49 Acquired absence of other specified parts of digestive tract; Z90.5 Acquired absence of kidney; Z87.440 Personal history of urinary (tract) infections; Z85.528 Personal history of other malignant neoplasm of kidney; Z88.0 Allergy status to penicillin; Z88.5 Allergy status to narcotic agent; Z88.8 Allergy status to other drugs, medicaments and biological substances
CPT/HCPCS: 70450; 73564; 99281; 99285

== ENCOUNTER 2017-06-11 23:11 | Inpatient (IN) | payer OTHER ==
[~2017-06-11] VITALS: Ht 167.6 cm; Wt 82.8 kg
[2017-06-11 23:29] LABS: HEMATOCRIT 35.2 % (36.0-46.0); HEMOGLOBIN 11.2 G/DL (11.9-15.5); MCHC 31.8 G/DL (30.0-36.0); MCV 100.6 FL (83-99); PLATELET COUNT 193 K/uL (156-360); RBC DIS.WIDTH-SD 51.8 % (39-53); WHITE BLOOD COUNT 5.9 K/uL (4.1-10.2)
[2017-06-11 23:36] LABS: CHLORIDE 106 mEq/L (99-109); POTASSIUM 4.3 mEq/L (3.7-5.4); SODIUM 138 mEq/L (136-147)
[2017-06-11 23:37] LABS: PTT 25.4 SEC (25-37)
[2017-06-11 23:38] LABS: GLUCOSE 80 mg/dL (70-99)
[2017-06-11 23:42] LABS: CREATININE 1.6 mg/dL (0.6-1.3); GFR ESTIMATE (CALCULATED) 33 mL/min/
[2017-06-11 23:43] LABS: UREA NITROGEN (BUN) 38 mg/dL (9-23)
[2017-06-11 23:49] LABS: TROP-I INTERPRETATION NEGATIVE; TROPONIN-I 0.02 ng/mL (0.0-0.30)
[2017-06-12 05:15] LABS: TROP-I INTERPRETATION NEGATIVE; TROPONIN-I 0.02 ng/mL (0.0-0.30)
[2017-06-12] MEDS ORDERED: LEXAPRO10 MG PO (07:42)
[2017-06-12] MEDS ORDERED: PROPRANOLOL HCL10 MG PO (07:45)
[2017-06-12] MEDS ORDERED: ZYRTEC10 M2 PO (07:48)
[2017-06-12 08:11] LABS: HEMATOCRIT 25.8 % (36.0-46.0); HEMOGLOBIN 8.2 G/DL (11.9-15.5); MCH 32.3 PG (29.0-34.0); MCHC 31.8 G/DL (30.0-36.0); MCV 101.6 FL (83-99); PLATELET COUNT 158 K/uL (156-360); RBC DIS.WIDTH-CV 14.2 % (11.8-14.6); RBC DIS.WIDTH-SD 52.6 % (39-53); RED BLOOD COUNT 2.54 M/uL (3.80-5.20); WHITE BLOOD COUNT 7.8 K/uL (4.1-10.2)
[2017-06-12 08:36] LABS: CHLORIDE 111 MEQ/L (99-109); CREATININE 1.4 MG/DL (0.6-1.3); GFR ESTIMATE (CALCULATED) 38 mL/min/; GLUCOSE 103 mg/dL (70-99); POTASSIUM 4.3 MEQ/L (3.7-5.4); SODIUM 140 MEQ/L (136-147); UREA NITROGEN (BUN) 37 mg/dL (9-23)
[2017-06-12 11:16] VITALS: BP 154/77
[2017-06-12 15:04] VITALS: BP 169/70
[2017-06-12 19:00] VITALS: BP 159/70
[2017-06-12 23:44] VITALS: BP 133/63
[2017-06-13] VITALS (16 sets, daily range): BP systolic 124–198; BP diastolic 52–81
[2017-06-13 08:13] LABS: HEMATOCRIT 24.8 % (36.0-46.0); HEMOGLOBIN 7.8 G/DL (11.9-15.5); MCH 32.2 PG (29.0-34.0); MCHC 31.5 G/DL (30.0-36.0); MCV 102.5 FL (83-99); PLATELET COUNT 147 K/uL (156-360); RBC DIS.WIDTH-CV 14.1 % (11.8-14.6); RBC DIS.WIDTH-SD 53.2 % (39-53); RED BLOOD COUNT 2.42 M/uL (3.80-5.20); WHITE BLOOD COUNT 4.9 K/uL (4.1-10.2)
[2017-06-13 08:37] LABS: CHLORIDE 110 MEQ/L (99-109); CREATININE 1.2 MG/DL (0.6-1.3); GFR ESTIMATE (CALCULATED) 45 mL/min/; GLUCOSE 89 mg/dL (70-99); POTASSIUM 4.3 MEQ/L (3.7-5.4); SODIUM 138 MEQ/L (136-147); UREA NITROGEN (BUN) 26 mg/dL (9-23)
[2017-06-13] MEDS ORDERED: LOSARTAN POTAS100 MG PO (13:49)
[2017-06-13 14:30] LABS: HEMATOCRIT 24.2 % (36.0-46.0); HEMOGLOBIN 7.6 G/DL (11.9-15.5); MCV 102.5 FL (83-99)
[2017-06-13 17:03] LABS: STOOL OCCULT BLD 1ST SPECIMEN NEGATIVE
[2017-06-13 21:54] LABS: HEMATOCRIT 31.9 % (36.0-46.0); HEMOGLOBIN 10.4 G/DL (11.9-15.5); MCV 96.4 FL (83-99)
[2017-06-14] VITALS (7 sets, daily range): BP systolic 92–173; BP diastolic 42–70
[2017-06-14 05:17] LABS: HEMATOCRIT 28.1 % (36.0-46.0); HEMOGLOBIN 9.2 G/DL (11.9-15.5); MCV 95.6 FL (83-99)
[2017-06-14 09:07] LABS: CHLORIDE 110 MEQ/L (99-109); CREATININE 1.1 MG/DL (0.6-1.3); GFR ESTIMATE (CALCULATED) 50 mL/min/; GLUCOSE 87 mg/dL (70-99); POTASSIUM 4.3 MEQ/L (3.7-5.4); SODIUM 139 MEQ/L (136-147); UREA NITROGEN (BUN) 21 mg/dL (9-23)
[2017-06-14 14:28] LABS: HEMATOCRIT 29.3 % (36.0-46.0); HEMOGLOBIN 9.3 G/DL (11.9-15.5); MCV 96.7 FL (83-99)
[2017-06-14 22:07] LABS: HEMOGLOBIN 9.4 G/DL (11.9-15.5)
[2017-06-15 03:32] VITALS: BP 136/52
[2017-06-15 05:24] LABS: BASOPHIL (%) 0.8 % (0-1); BASOPHIL COUNT 0.1 K/uL (0-0.1); EOSINOPHIL (%) 3.6 % (0-5); EOSINOPHIL COUNT 0.2 K/uL (0-0.3); HEMOGLOBIN 8.6 G/DL (11.9-15.5); LYMPHOCYTE (%) 18.2 % (15-42); LYMPHOCYTE COUNT 1.1 K/uL (1.0-2.8); MCHC 33.1 G/DL (30.0-36.0); MCV 96.7 FL (83-99); MONOCYTE (%) 12.1 % (3-12); MONOCYTE COUNT 0.7 K/uL (0-0.8); NEUTROPHIL (%) 64.3 % (45-76); NEUTROPHIL COUNT 3.8 K/uL (1.8-6.4); PLATELET COUNT 148 K/uL (156-360); RBC DIS.WIDTH-CV 16.4 % (11.8-14.6); RBC DIS.WIDTH-SD 57.8 % (39-53); RED BLOOD COUNT 2.69 M/uL (3.80-5.20); WHITE BLOOD COUNT 5.9 K/uL (4.1-10.2)
[2017-06-15 05:46] LABS: CHLORIDE 108 MEQ/L (99-109); CREATININE 1.3 MG/DL (0.6-1.3); GFR ESTIMATE (CALCULATED) 41 mL/min/; GLUCOSE 82 mg/dL (70-99); SODIUM 137 MEQ/L (136-147); UREA NITROGEN (BUN) 25 mg/dL (9-23)
[2017-06-15 07:17] VITALS: BP 194/80
[2017-06-15 11:15] VITALS: BP 123/58
[2017-06-15 19:00] VITALS: BP 153/68
[2017-06-15 23:24] VITALS: BP 184/75
[2017-06-16 03:45] VITALS: BP 173/74
[2017-06-16 05:32] LABS: BASOPHIL (%) 0.6 % (0-1); EOSINOPHIL (%) 2.9 % (0-5); EOSINOPHIL COUNT 0.2 K/uL (0-0.3); HEMATOCRIT 30.4 % (36.0-46.0); HEMOGLOBIN 9.8 G/DL (11.9-15.5); IMMATURE GRANULOCYTE (%) 0.8 % (0.0-0.7); LYMPHOCYTE (%) 16.8 % (15-42); LYMPHOCYTE COUNT 1.1 K/uL (1.0-2.8); MCH 31.2 PG (29.0-34.0); MCHC 32.2 G/DL (30.0-36.0); MCV 96.8 FL (83-99); MONOCYTE (%) 12.7 % (3-12); MONOCYTE COUNT 0.8 K/uL (0-0.8); NEUTROPHIL (%) 66.2 % (45-76); NEUTROPHIL COUNT 4.4 K/uL (1.8-6.4); PLATELET COUNT 172 K/uL (156-360); RBC DIS.WIDTH-SD 56.6 % (39-53); RED BLOOD COUNT 3.14 M/uL (3.80-5.20); WHITE BLOOD COUNT 6.6 K/uL (4.1-10.2)
[2017-06-16 06:11] LABS: CHLORIDE 105 MEQ/L (99-109); CREATININE 1.1 MG/DL (0.6-1.3); GFR ESTIMATE (CALCULATED) 50 mL/min/; GLUCOSE 86 mg/dL (70-99); POTASSIUM 4.5 MEQ/L (3.7-5.4); SODIUM 137 MEQ/L (136-147); UREA NITROGEN (BUN) 24 mg/dL (9-23)
[2017-06-16 08:50] VITALS: BP 138/64
[2017-06-16] MEDS ORDERED: PRAVASTATIN SOD40 MG PO (09:18)
== END 2017-06-16 16:24 | DRG 812 ==
LOC: EME 23:11 → EDOF 06-12 04:43 → 4SOUTH 06-12 04:43 → ENRESERV 06-12 04:49 → 4SOUTH 06-12 05:58 → ENPENDDIS 06-16 11:19 → 4SOUTH 06-16 16:24
PROVIDERS: Emergency Medicine; Hospitalist; Nurse Practitioner Adult Health
PROC: 0HQ0XZZ Repair Scalp Skin, External Approach (ICD-10-PCS; principal; 2017-06-12)
PROC: 30233N1 Transfusion of Nonautologous Red Blood Cells into Peripheral Vein, Percutaneous Approach (ICD-10-PCS; 2017-06-13)
DX: D62 Acute posthemorrhagic anemia (principal); E86.0 Dehydration; I95.1 Orthostatic hypotension; S01.01XA Laceration without foreign body of scalp, initial encounter; Z90.5 Acquired absence of kidney; S01.21XA Laceration without foreign body of nose, initial encounter; E86.1 Hypovolemia; W01.0XXA Fall on same level from slipping, tripping and stumbling without subsequent striking against object, initial encounter; S70.02XA Contusion of left hip, initial encounter; I48.91 Unspecified atrial fibrillation; F32.9 Major depressive disorder, single episode, unspecified; F41.9 Anxiety disorder, unspecified; K21.9 Gastro-esophageal reflux disease without esophagitis; G25.0 Essential tremor; Z85.528 Personal history of other malignant neoplasm of kidney; Z91.81 History of falling; Z95.1 Presence of aortocoronary bypass graft; E78.5 Hyperlipidemia, unspecified; I25.2 Old myocardial infarction; I25.10 Atherosclerotic heart disease of native coronary artery without angina pectoris; I12.9 Hypertensive chronic kidney disease with stage 1 through stage 4 chronic kidney disease, or unspecified chronic kidney disease; N18.3 Chronic kidney disease, stage 3 (moderate)
CPT/HCPCS: 70450; 70486; 71045; 72125; 73502; 73701; 74176; 80048; 82272; 84484; 85014; 85018; 85025; 85027; 85610; 85730; 86850; 86900; 86901; 86920; 93005; 93306; 97530 GO; 97530 GP; 99281; 99285; G8978 GP CJ; G8979 GP CH; G8987 GO CI; G8988 GO CH; J0360; J7030; P9016

== ENCOUNTER 2017-07-23 16:30 | Inpatient (IN) | payer OTHER ==
[~2017-07-23] VITALS: Ht 167.6 cm; Wt 87.9 kg
[~2017-07-23 16:30] MED LIST changes: +LEXAPRO10 MG PO; +PROPRANOLOL HCL10 MG PO; +ZYRTEC10 M2 PO
[2017-07-23 18:45] LABS: HEMATOCRIT 31.4 % (36.0-46.0); HEMOGLOBIN 10.2 G/DL (11.9-15.5); MCH 32.7 PG (29.0-34.0); MCHC 32.5 G/DL (30.0-36.0); MCV 100.6 FL (83-99); PLATELET COUNT 183 K/uL (156-360); RED BLOOD COUNT 3.12 M/uL (3.80-5.20)
[2017-07-23] MEDS ORDERED: LO-DOSE ASPIRIN81 M2 PO (18:49)
[2017-07-23] MEDS ORDERED: NEURONTIN300 MG PO (18:52)
[2017-07-23] MEDS ORDERED: ZYRTEC10 M2 PO (18:53)
[2017-07-23] MEDS ORDERED: IRON325 M1 PO (18:55)
[2017-07-23] MEDS ORDERED: MILK OF MAGN PO (18:58)
[2017-07-23 18:59] LABS: CHLORIDE 105 mEq/L (99-109); POTASSIUM 4.9 mEq/L (3.7-5.4); SODIUM 137 mEq/L (136-147)
[2017-07-23] MEDS ORDERED: DULCOLAX10 MG PR (19:00)
[2017-07-23 19:01] LABS: GLUCOSE 80 mg/dL (70-99)
[2017-07-23] MEDS ORDERED: ENEMA BOTTLE1 EACH MC (19:02)
[2017-07-23] MEDS ORDERED: NITROSTAT0.4 MG SL (19:03)
[2017-07-23 19:05] LABS: CREATININE 1.5 mg/dL (0.6-1.3); GFR ESTIMATE (CALCULATED) 35 mL/min/
[2017-07-23 19:06] LABS: UREA NITROGEN (BUN) 39 mg/dL (9-23)
[2017-07-23 22:38] VITALS: BP 120/58
[2017-07-23 22:48] VITALS: BP 154/67
[2017-07-24 00:09] VITALS: BP 167/62
[2017-07-24 05:07] VITALS: BP 136/72
[2017-07-24 08:05] VITALS: BP 154/71
[2017-07-24 11:16] VITALS: BP 140/62
[2017-07-24 19:41] VITALS: BP 167/74
[2017-07-24 23:51] VITALS: BP 175/70
[2017-07-25] VITALS (7 sets, daily range): BP systolic 133–185; BP diastolic 60–86
[2017-07-26 03:38] VITALS: BP 140/64
[2017-07-26 05:47] LABS: HEMATOCRIT 28.4 % (36.0-46.0); HEMOGLOBIN 8.9 G/DL (11.9-15.5); MCH 31.9 PG (29.0-34.0); MCHC 31.3 G/DL (30.0-36.0); MCV 101.8 FL (83-99); PLATELET COUNT 166 K/uL (156-360); RBC DIS.WIDTH-CV 14.8 % (11.8-14.6); RED BLOOD COUNT 2.79 M/uL (3.80-5.20); WHITE BLOOD COUNT 5.8 K/uL (4.1-10.2)
[2017-07-26 06:11] LABS: CHLORIDE 109 MEQ/L (99-109); CREATININE 1.4 MG/DL (0.6-1.3); GFR ESTIMATE (CALCULATED) 38 mL/min/; POTASSIUM 4.1 MEQ/L (3.7-5.4); SODIUM 138 MEQ/L (136-147); UREA NITROGEN (BUN) 31 mg/dL (9-23)
[2017-07-26 06:15] LABS: GLUCOSE 113 mg/dL (70-99)
[2017-07-26 08:12] VITALS: BP 139/62
[2017-07-26 11:53] VITALS: BP 140/63
[2017-07-26 16:56] VITALS: BP 109/55
[2017-07-26 19:24] VITALS: BP 139/63
[2017-07-26 23:13] VITALS: BP 124/75
[2017-07-27 03:58] VITALS: BP 161/70
[2017-07-27 06:37] LABS: HEMATOCRIT 30.8 % (36.0-46.0); HEMOGLOBIN 9.7 G/DL (11.9-15.5); MCH 31.9 PG (29.0-34.0); MCHC 31.5 G/DL (30.0-36.0); MCV 101.3 FL (83-99); PLATELET COUNT 185 K/uL (156-360); RBC DIS.WIDTH-CV 14.7 % (11.8-14.6); RBC DIS.WIDTH-SD 55.8 % (39-53); RED BLOOD COUNT 3.04 M/uL (3.80-5.20); WHITE BLOOD COUNT 5.7 K/uL (4.1-10.2)
[2017-07-27 06:58] LABS: CHLORIDE 107 MEQ/L (99-109); CREATININE 1.7 MG/DL (0.6-1.3); GFR ESTIMATE (CALCULATED) 30 mL/min/; GLUCOSE 98 mg/dL (70-99); POTASSIUM 4.8 MEQ/L (3.7-5.4); SODIUM 137 MEQ/L (136-147); UREA NITROGEN (BUN) 38 mg/dL (9-23)
[2017-07-27 08:24] VITALS: BP 154/63
[2017-07-27 15:59] VITALS: BP 121/58
[2017-07-27 19:34] VITALS: BP 136/65
[2017-07-27 23:32] VITALS: BP 141/64
[2017-07-28 03:27] VITALS: BP 146/72
[2017-07-28 07:50] VITALS: BP 169/74
[2017-07-28 12:15] VITALS: BP 137/64
== END 2017-07-28 13:02 | DRG 494 ==
LOC: EME 16:30 → 3EAST 19:36 → EDOF 19:36 → ENRESERV 19:45 → 3EAST 20:43
PROVIDERS: Internal Medicine; Nurse Practitioner Family
DX: S82.851A Displaced trimalleolar fracture of right lower leg, initial encounter for closed fracture (principal); I25.2 Old myocardial infarction; E78.5 Hyperlipidemia, unspecified; W18.30XA Fall on same level, unspecified, initial encounter; I25.10 Atherosclerotic heart disease of native coronary artery without angina pectoris; K21.9 Gastro-esophageal reflux disease without esophagitis; G20 Parkinson's disease; N18.3 Chronic kidney disease, stage 3 (moderate); R48.2 Apraxia; I48.0 Paroxysmal atrial fibrillation; Z90.5 Acquired absence of kidney; Z93.3 Colostomy status; Z85.528 Personal history of other malignant neoplasm of kidney; Z95.1 Presence of aortocoronary bypass graft; K11.7 Disturbances of salivary secretion; D53.9 Nutritional anemia, unspecified; I12.9 Hypertensive chronic kidney disease with stage 1 through stage 4 chronic kidney disease, or unspecified chronic kidney disease; Z79.82 Long term (current) use of aspirin
CPT/HCPCS: 71045; 73600; 73610; 76000; 80048; 85027; 93005; 94799; 97530 GP; 99281; 99285; C1713; J0131; J0360; J0690; J1170; J1644; J2250; J2405; J2710; J2795; J3010; J7030; J7643; S0020